=== PATIENT | female | born 1965 | race Caucasian/White ===

== ENCOUNTER 2017-04-28 20:17 | Emergency (ER) | payer BC ==
[~2017-04-28] VITALS: Ht 170.2 cm; Wt 65.8 kg
[~2017-04-28 20:17] MED LIST: PROTONIX40 M1 PO
[2017-04-28] MEDS ORDERED: OMEPRAZOLE40 MG PO (20:25)
[2017-04-28] MEDS ORDERED: AMITRIPTYLINE H10 M3 PO (20:26)
[2017-04-28] MEDS ORDERED: MELATONIN5 M1 PO (20:26)
[2017-04-28 20:53] LABS: URINE BILIRUBIN NEGATIVE (Negative); URINE BLOOD NEGATIVE (Negative); URINE COLOR YELLOW; URINE GLUCOSE-RANDOM* NEGATIVE (Negative); URINE KETONES TRACE (Negative); URINE NITRITE NEGATIVE (Negative); URINE PROTEIN (DIPSTICK) NEGATIVE (Negative); URINE SPECIFIC GRAVITY <= 1.005 (1.003-1.035); URINE UROBILINOGEN 0.2 E.U./dl (0.2-1.0)
[2017-04-28 22:04] LABS: HEMATOCRIT 39.1 % (37.0-47.0); MCH 29.9 pg (26.0-34.0); MCHC 33.3 g/dL (28.0-37.0); MCV 89.6 fL (80.0-100.0); RBC 4.37 mil/uL (4.20-5.00); RDW 13.3 % (10.5-14.5); WBC 10.6 thou/uL (4.0-11.0)
[2017-04-28 22:09] LABS: CALCIUM 9.6 mg/dL (8.5-10.1); CREATININE 0.7 mg/dL (0.6-1.0); POTASSIUM 3.8 mmol/L (3.5-5.1)
[2017-04-28] MEDS ORDERED: PHENAZOPYRIDIN200 M2 PO (22:44)
[2017-04-28 22:56] VITALS: BP 131/80
[2017-04-30 17:08] LABS: CHLAMYDIA TRACHOMATIS-PCR Negative (Negative); NEISSERIA GONORRHEA-PCR Negative (Negative)
== END 2017-04-28 22:58 | disposition home or self-care (01) ==
LOC: ER 20:17
PROVIDERS: Emergency Medicine; Physician Assistant
DX: R10.2 Pelvic and perineal pain (principal); R30.0 Dysuria; F10.99 Alcohol use, unspecified with unspecified alcohol-induced disorder; Z98.890 Other specified postprocedural states

== ENCOUNTER 2019-02-27 18:11 | Emergency (ER) | payer BC ==
[~2019-02-27] VITALS: Ht 170.2 cm; Wt 72.6 kg
[~2019-02-27 18:11] MED LIST changes: +AMITRIPTYLINE H10 M3 PO; +MELATONIN5 M1 PO; +OMEPRAZOLE40 MG PO; +PHENAZOPYRIDIN200 M2 PO
[2019-02-27 19:07] VITALS: BP 157/83
[2019-02-27] MEDS ORDERED: AMITRIPTYLINE H10 M3 PO (19:07)
== END 2019-02-27 19:49 | disposition home or self-care (01) ==
LOC: ER 18:11
DX: K56.41 Fecal impaction (principal)